=== PATIENT | female | born 1990 | race Caucasian/White ===

== ENCOUNTER 2024-05-03 22:52 | Emergency (ER) | payer BC ==
[2024-05-03 23:55] LABS: BASOPHILS PERCENT AUTO 0.2 % (0.1-1.3); EOSINOPHILS ABSOLUTE AUTO 0.07 K/uL (0.00-0.40); EOSINOPHILS PERCENT AUTO 0.7 % (0.0-5.4); HEMATOCRIT 40.3 % (34.3-46.0); IMMATURE GRAN ABSOLUTE AUTO 0.04 K/uL (0.00-0.23); IMMATURE GRAN PERCENT AUTO 0.4 % (0.0-0.7); LYMPHOCYTES ABSOLUTE AUTO 1.79 K/uL (0.8-3.3); LYMPHOCYTES PERCENT AUTO 18.4 % (11.4-47.7); MEAN CORPUSCULAR HEMOGLOBIN 30.8 pg (31.6-35.5); MEAN CORPUSCULAR HGB CONC 34.7 g/dL (31.6-35.5); MEAN CORPUSCULAR VOLUME 88.8 fL (81.4-99.0); MONOCYTES ABSOLUTE AUTO 0.59 K/uL (0.20-0.90); MONOCYTES PERCENT AUTO 6.1 % (3.3-12.6); NEUTROPHILS PERCENT AUTO 74.2 % (40.0-78.1); PLATELET COUNT,PLT 248 K/uL (130-375); RED BLOOD CELL COUNT 4.54 M/uL (3.77-5.24); WHITE BLOOD CELL COUNT,WBC 9.7 K/uL (3.2-11.0)
[2024-05-03 23:58] LABS: BASOPHILS ABSOLUTE AUTO 0.02 K/uL (0.00-0.10)
[2024-05-04 00:15] LABS: A/G RATIO 0.8 (1.2-2.2); ALANINE AMINOTRANSFERASE,ALT 43 U/L (12-78); ALBUMIN 3.6 g/dL (3.4-5.0); ALKALINE PHOSPHATASE 49 U/L (46-116); ASPARTATE AMNIOTRANSFERASE,AST 29 U/L (15-37); BILIRUBIN TOTAL 0.5 mg/dL (0.2-1.0); CARBON DIOXIDE,CO2 27 mmol/L (21-32); CHLORIDE,CL 101 mmol/L (100-108); POTASSIUM,K 4.6 mmol/L (3.6-5.2); SODIUM,NA 137 mmol/L (140-148)
[2024-05-04 00:22] LABS: BLOOD UREA NITROGEN,BUN 13 mg/dL (7-18); CREATININE 0.9 mg/dL (0.6-1.0); EST CRCL DRUG DOSING (CG) 74.23 mL/min; ESTIMATED GFR 87 mL/min (>60); GLUCOSE RANDOM 140 mg/dL (74-106)
[2024-05-04 00:29] LABS: ANION GAP 13.6 mmol/L (5.0-14.0)
[2024-05-04 00:36] LABS: APPEARANCE,URINE CLEAR (CLEAR); BILIRUBIN,URINE NEGATIVE (NEGATIVE); COLOR,URINE YELLOW (YELLOW); GLUCOSE,URINE NEGATIVE (NEGATIVE); KETONES,URINE 15 mg/dL (NEGATIVE); LEUKOCYTE ESTERASE,URINE NEGATIVE (NEGATIVE); NITRITE,URINE NEGATIVE (NEGATIVE); OCCULT BLOOD,URINE NEGATIVE (NEGATIVE); PROTEIN,URINE NEGATIVE (NEGATIVE); UROBILINOGEN,URINE 0.2 EU/dL (0.2-1.0)
[2024-05-04 00:44] LABS: RBC,URINE 0-5 (0-5)
[2024-05-04 00:45] LABS: AMORPHOUS SEDIMENT,URINE NOT SEEN; BACTERIA,URINE MANY; EPITHELIAL CELLS,URINE FEW; MUCUS,URINE NOT SEEN
== END 2024-05-04 01:22 | disposition home or self-care (01) ==
LOC: JP.ED 22:52
DX: O03.9 Complete or unspecified spontaneous abortion without complication (principal); Z79.899 Other long term (current) drug therapy
CPT/HCPCS: 36415; 80053; 81001; 83605; 84702; 85025; 86140; 99283; 99284